=== PATIENT | female | born 1980 | race Caucasian/White ===

== ENCOUNTER 2020-03-05 12:46 | Outpatient (NON) | payer OTHER, SELFPAY ==
[2020-03-06 00:26] LABS: SARS-CoV-2 RNA PCR Positive
== END 2020-03-05 12:47 ==
PROVIDERS: PCP Family Medicine; Visit Provider Family Medicine
DX: U07.1 COVID-19 (principal)
CPT/HCPCS: 87635; C9803; U0003

== ENCOUNTER 2020-04-09 11:32 | Emergency (ER) | payer OTHER, SELFPAY ==
[2020-04-09 12:02] VITALS: BP 142/86; PULSE 101; RESP 18; TEMP 36.3; O2SAT 98
[2020-04-09 12:19] LABS: Glucose Point of Care 81 (65-105)
--- NOTE | 2020-04-09 14:12 | ED.HA ---
HPI - Headache General Chief Complaint: Headache Stated Complaint: migraine/nausea Time Seen by Provider: 04/09/20 13:06 Source: patient Mode of arrival: ambulatory Limitations: no limitations History of Present Illness HPI Narrative: 39-year-old female presents to the emergency department today with complaints of a migraine headache. Patient does note that she has had these multiple times in the past and this does feel typical of her migraines. She does endorse some nausea. Patient states that she has been vomiting as well. She notes that she has been vomiting so much that at one point nothing but bile came out. Patient states that the pain right now is a 10 out of 10. Related Data Allergies Allergy/AdvReac Type Severity Reaction Status Date / Time hydrocodone AdvReac Unknown N&V Verified 04/09/20 12:05 Review of Systems Review of Systems: Narrative: CONSTITUTIONAL: Denies fever, chills, or sweats. EYES: Denies visual changes, redness, or discharge. ENT: Denies rhinorrhea, congestion, sore throat, or otalgia. CARDIOVASCULAR: Denies chest pain, palpitations, or edema. RESPIRATORY: Denies cough or dyspnea. GASTROINTESTINAL: Denies abdominal pain, nausea, vomiting, or diarrhea. GENITOURINARY: Denies dysuria or hematuria. SKIN: Denies rash or itching. MUSCULOSKELETAL: Denies back pain, joint pain, or myalgia. NEUROLOGIC: Denies numbness, dizziness, or weakness. Endorses migraine headache PSYCHIATRIC: Denies anxiety or depression. [facility] Past Medical History Medical History (Updated 04/09/20 @ 15:06 by Antonio Brandon DO) Migraine Exam Narrative: Exam Narrative: GENERAL: Well-appearing, well-nourished, and in no acute distress. HEAD: Normocephalic, atraumatic. EYES: PERRLA and EOMI. ENT: Nares clear, no rhinorrhea or epistaxis. Mucous membranes moist. Oropharynx without tonsillar hypertrophy exudate or other lesions. Bilateral TMs pearly solis nonbulging NECK: Supple. No adenopathy or masses. No carotid bruits or JVD CHEST: Clear to auscultation. No respiratory distress. No wheezes rales or rhonchi HEART: Regular rate and rhythm. No murmur heard. Normal peripheral pulses. ABDOMEN: Soft, nontender, nondistended, normal active bowel sounds. EXTREMITIES: Normal range of motion. No edema. SKIN: Warm, dry, no rash. NEURO: No focal deficits. Alert and oriented x3. PSYCH: Normal mood and affect. Course Reevaluation(s) Reevaluation #1: Reevaluated patient provided care update, at this time she states that she is feeling much better. She notes that her headache is down to a 5 and she would like to go home so she can rest. Time: 15:04 Vital Signs Vital signs: Vital Signs Temperature 36.3 C L 04/09/20 12:02 Pulse Rate 101 H 04/09/20 12:02 Respiratory Rate 18 04/09/20 12:02 Blood Pressure 142/86 H 04/09/20 12:02 Pulse Oximetry 98 04/09/20 12:02 Temperature 36.3 C L 04/09/20 12:02 Pulse Rate 103 H 04/09/20 14:59 Respiratory Rate 16 04/09/20 14:59 Blood Pressure 105/75 04/09/20 14:59 Pulse Oximetry 100 04/09/20 14:59 MDM - Headache MDM Narrative Medical decision making narrative: In brief this is a 39-year-old female who came into the emergency department with complaints of a migraine headache. She stated that this is typical of her migraine headaches. Patient was given a migraine cocktail of Toradol, Compazine and Benadryl. She noted that this made her feel much better. She stated that after her migraine subsided she was ready to go home. Patient will be prescribed Fioricet. I did explain how this works and when she should take it. Patient was recommended to follow-up with her primary care physician. Medical Records Attestation: I reviewed the patient's medical records. Lab Data Labs: Lab Results 04/09/20 04/09/20 Range/Units 12:09 14:46 POC Capillary Glucose 81 75 (65-105) mg/dl Discharge Plan Discharge Clinical Impression: Migraine Patient Disposition: Ho
[2020-04-09] MEDS: LACTATED RINGERS 1,000 ML 999 ML IV CONT (14:33)
[2020-04-09] MEDS: KETOROLAC 15 MG/ML VIAL (*BKC) IV PUSH (14:34)
[2020-04-09] MEDS: PROCHLORPERAZINE EDISYLATE 10 MG/2 ML VIAL 5 MG IV PUSH (14:36)
[2020-04-09] MEDS: diphenhydrAMINE HCl INJ 50 MG/ML VIAL 25 MG IV PUSH (14:36)
--- NOTE | 2020-04-09 14:47 | PC.NURSE ---
Addendum entered by Kim Townsend RN 04/09/20 14:48: made aware. Original Note: pt stated I feel like my blood sugar is getting low. Oz completed 75.
[2020-04-09 14:49] LABS: Glucose Point of Care 75 (65-105)
[2020-04-09 14:59] VITALS: BP 105/75; PULSE 103; RESP 16; O2SAT 100
== END 2020-04-09 15:25 | disposition home or self-care (01) ==
PROVIDERS: Emergency Provider Emergency Medicine; PCP Family Medicine
DX: G43.909 Migraine, unspecified, not intractable, without status migrainosus (principal)
CPT/HCPCS: 82948; 96361; 96374; 96375; 99284; J0780; J1200; J1885; J7120

== ENCOUNTER 2022-02-12 16:49 | Emergency (ER) | payer BC, SELFPAY ==
--- NOTE | ~2022-02-12 | CT_ITS ---
EXAMINATION: CT abdomen pelvis wo con DATE: 02/12/2022 18:14 INDICATION: rt flank pain TECHNIQUE: Computed tomography (CT) of the abdomen and pelvis was performed without intravenous contr ast. Automated exposure control and iterative reconstruction technique were employed. The dose-length product was 443.35 mGy-cm. COMPARISON: 02/18/2018. FINDINGS: Lower thorax: Unremarkable Liver: Enlarged. Fatty infiltrated. Biliary/Gallbladder: Gallbladder is normal. No bile duct dilation. Pancreas: No mass or duct dilation. Spleen: Normal. Adrenals:No mass. Kidneys: 12 mm left renal pelvis stone, likely causing obstruction of an upper pole calyx which is mo derately dilated, with minimal adjacent inflammatory stranding. Otherwise no hydronephrosis. Multiple additional bilateral nonobstructing calculi are present. No suspicious renal mass. GI tract: No small or large bowel dilation. Normal appendix. Mesentery/Peritoneum: No ascites, mass, or free air. Retroperitoneum: No mass. Pelvis: Pelvic organs are within normal limits. Soft Tissues: Soft tissues and body wall unremarkable. Bones: No acute osseous finding. IMPRESSION: No obstructive uropathy or distal collecting system stone detected on the right. 12 mm left renal pel vis stone, likely causing moderate upper pole caliectasis. Hepatomegaly and steatosis. Reviewed, dictated and finalized at location [employer] IMPRESSION: No obstructive uropathy or distal collecting system stone detected on the right . 12 mm left renal pelvis stone, likely causing moderate upper pole caliectasis . Hepatomegaly and steatosis.
[2022-02-12 16:51] VITALS: BP 142/87; PULSE 97; RESP 16; TEMP 36.6; O2SAT 97
[2022-02-12 17:25] LABS: Appearance Urine Slightly Cloudy (Clear); Basophils Percent Auto 0.3 % (0.2-1.2); Bilirubin Urine Negative (Negative); Blood Urine 2+ (Negative); Color Urine Yellow (Yellow); Eosinophils Absolute Auto 0.2 K/mm3 (0-0.3); Eosinophils Percent Auto 1.7 % (0-4.4); Glucose Urine UA 3+ mg/dL (Negative); Hematocrit 40.1 % (37.0-47.0); Hemoglobin 13.2 g/dL (12.0-15.0); Immature Granulocyte Absolute 0.05 K/mm3 (0.00-0.031); Immature Granulocyte Percent A 0.4 % (0-0.5); Ketones Urine Trace mg/dL (Negative); Leukocyte Esterase Ur Negative LEU/UL (Negative); Lymphocytes Absolute Auto 4.58 K/mm3 (0.9-3.2); Lymphocytes Percent Auto 40.1 % (18.3-44.2); Mean Corpuscular HGB Conc 32.9 g/dl (32-36); Mean Corpuscular Hemoglobin 28.4 pg (26-34); Mean Corpuscular Volume 86.4 fl (80-100); Mean Platelet Volume 10.3 fl (7.4-10.4); Monocytes Absolute Auto 0.8 K/mm3 (0.1-0.6); Neutrophils Absolute Auto 5.8 K/mm3 (1.3-6.7); Neutrophils Percent Auto 50.5 % (45.5-73.1); Nitrate Urine Negative (Negative); Platelet Count Result 353 k/mm3 (150-375); Protein Urine 1+ mg/dL (Negative); Red Blood Count 4.64 M/mm3 (4.2-5.4); Red Cell Distribution Width 13.2 % (11.5-14.5); Urobilinogen Urine 0.2 mg/dL (<2.0); White Blood Count 11.4 K/mm3 (4.5-10.0); pH Urine 5.5 (5.0-9.0)
[2022-02-12 17:31] LABS: Bacteria Urine Trace /hpf; Mucus Urine Rare /lpf; Squamous Epithelial Cell Urine Few /hpf (Few); WBC Urine 31-50 /hpf
[2022-02-12 17:34] LABS: Add Urine Microscopic? YES
[2022-02-12] MEDS: ONDANSETRON INJ 4 MG/2 ML VIAL IV PUSH (17:36)
[2022-02-12] MEDS: MORPHINE SULFATE (*CRX) 2 MG/ML INJ IV PUSH (17:36)
[2022-02-12] MEDS: SODIUM CHLORIDE 0.9% IV 1,000 ML 999 ML IV CONT (17:36)
[2022-02-12 17:38] LABS: Alanine Aminotransferase 41 U/L (6-35); Albumin Level 4.3 g/dL (3.5-5.1); Alkaline Phosphatase 127 U/L (38-126); Anion Gap 11 mmol/L (8-16); Aspartate Amino Transferase 31 U/L (14-36); Bilirubin,Total 0.4 mg/dL (0.2-1.3); Blood Urea Nitrogen 9 mg/dL (7-17); Calcium 9.3 mg/dL (8.4-10.2); Carbon Dioxide 25 mmol/L (22-30); Chloride 99 mmol/L (98-107); Estimated CRCL calculation 130 ml/min; Estimated Glomerular Filt Rate > 60; Glucose 381 mg/dL (65-110); Sodium 135 mmol/L (137-145)
--- NOTE | 2022-02-12 18:29 | ED.FEMALEGU ---
HPI - Female Genitourinary General Chief complaint: Urogenital-Female Stated complaint: kidney stone? Time Seen by Provider: 02/12/22 16:54 History of Present Illness HPI Narrative: 41-year-old female history of kidney stones presents to the emergency room with right flank pain that has been present since this morning when she woke up. Patient reports associated nausea. Has been having regular bowel movements and is flatulent. Patient states the pain radiates into her right upper quadrant. States pain is similar to previous incidences of kidney stones. Related Data Allergies Allergy/AdvReac Type Severity Reaction Status Date / Time hydrocodone AdvReac Unknown N&V Verified 04/09/20 12:05 Review of Systems Review of Systems: CONSTITUTIONAL: Denies fever, chills, or sweats. EYES: Denies visual changes, redness, or discharge. ENT: Denies rhinorrhea, congestion, sore throat, or otalgia. CARDIOVASCULAR: Denies chest pain, palpitations, or edema. RESPIRATORY: Denies cough or dyspnea. GASTROINTESTINAL: Denies abdominal pain, nausea, vomiting, or diarrhea. GENITOURINARY: Denies dysuria or hematuria. SKIN: Denies rash or itching. MUSCULOSKELETAL: Denies back pain, joint pain, or myalgia. NEUROLOGIC: Denies headache, numbness, dizziness, or weakness. PSYCHIATRIC: Denies anxiety or depression. PMF[facility] Past Medical History Medical History Migraine Exam Narrative: GENERAL: Well-appearing, well-nourished, no physical limitations, and in no acute distress. HEAD: Normocephalic, atraumatic. EYES: Conjunctivae normal, PERRLA and EOMI. CHEST: Clear to auscultation. No respiratory distress. No wheezes rales or rhonchi. HEART: Regular rate and rhythm. No murmur heard. Normal peripheral pulses. ABDOMEN: Soft, right upper quadrant tenderness, nondistended, normal active bowel sounds. : Normal external male/female exam. BACK: No CVA tenderness EXTREMITIES: Normal range of motion. No edema. No clubbing or cyanosis SKIN: Warm, dry, no rash. No noted wounds NEURO: No focal deficits. Alert and oriented x3. MAEW. CN's II-XI intact bilaterally, normal gait PSYCH: Cooperative. Normal mood and affect. Course Vital Signs Vital signs: Vital Signs Temperature 36.6 C 02/12/22 16:51 Pulse Rate 97 02/12/22 16:51 Respiratory Rate 16 02/12/22 16:51 Blood Pressure 142/87 H 02/12/22 16:51 Pulse Oximetry 97 02/12/22 16:51 Temperature 36.6 C 02/12/22 16:51 Pulse Rate 97 02/12/22 16:51 Respiratory Rate 16 02/12/22 16:51 Blood Pressure 142/87 H 02/12/22 16:51 Pulse Oximetry 97 02/12/22 16:51 MDM - Female Genitourinary Lab Data Result diagrams: 02/12/22 17:21 02/12/22 17:20 Labs: Lab Results 02/12/22 02/12/22 02/12/22 Range/Units 17:20 17:21 17:21 WBC 11.4 H (4.5-10.0) K/mm3 RBC 4.64 (4.2-5.4) M/mm3 Hgb 13.2 (12.0-15.0) g/dL Hct 40.1 (37.0-47.0) % MCV 86.4 (80-100) fl MCH 28.4 (26-34) pg MCHC 32.9 (32-36) g/dl RDW 13.2 (11.5-14.5) % Plt Count 353 (150-375) k/mm3 MPV 10.3 (7.4-10.4) fl Immature Gran % (Auto) 0.4 (0-0.5) % Neut % (Auto) 50.5 (45.5-73.1) % Lymph % (Auto) 40.1 (18.3-44.2) % [place] % (Auto) 7.0 (2.6-8.5) % Eos % (Auto) 1.7 (0-4.4) % Baso % (Auto) 0.3 (0.2-1.2) % Lymph # (Auto) 4.58 H (0.9-3.2) K/mm3 [place] # (Auto) 0.8 H (0.1-0.6) K/mm3 Eos # (Auto) 0.2 (0-0.3) K/mm3 Baso # (Auto) 0.0 (0.0-0.1) K/mm3 Abs Immat Gran (auto) 0.05 H (0.00-0.031) K/mm3 Absolute Neuts (auto) 5.8 (1.3-6.7) K/mm3 Absolute Nucleated RBC 0.0 (0.0-0.012) K/mm3 Nucleated RBC % 0.0 (0.0-0.2) % Sodium 135 L (137-145) mmol/L Potassium 4.0 (3.4-5.0) mmol/L Chloride 99 (98-107) mmol/L Carbon Dioxide 25 (22-30) mmol/L Anion Gap 11 (8-16) mmol/L BUN 9 (7-17) mg/dL Creatinine 0.50 L (0.7-1.
== END 2022-02-12 18:59 | disposition home or self-care (01) ==
PROVIDERS: Emergency Provider Nurse Practitioner Family; PCP Family Medicine
DX: R10.11 Right upper quadrant pain (principal)
CPT/HCPCS: 36415; 74176; 80053; 81001; 81025; 85025; 87086; 96361; 96374; 96375; 99284; J2270; J2405; J7030